=== PATIENT | female | born 1995 | race Caucasian/White ===

== ENCOUNTER 2019-05-23 10:21 | Emergency (ER) | payer OTHER, SELFPAY ==
[2019-05-23] VITALS (9 sets, daily range): BP systolic 103–130; BP diastolic 59–88; PULSE 62–120; RESP 14–24; TEMP 36.4; O2SAT 95–100
--- NOTE | ~2019-05-23 | XR_ITS ---
EXAMINATION: XR chest 2V 05/23/2019 10:38 INDICATION: Chest pain PROCEDURE: 2 view chest COMPARISON: Comparison to multiple prior studies sequentially, with oldest reviewed study dated 11/24. FINDINGS: The lungs are clear. The cardiomediastinal silhouette is within normal limits. There are no pleural effusions. There is no pneumothorax suspected. IMPRESSION: 1: NO ACUTE CARDIOPULMONARY DISEASE. Reviewed, dictated and finalized at location A.
--- NOTE | 2019-05-23 10:31 | ED.CHESTPAIN ---
HPI - Chest Pain General Chief Complaint: Chest Pain Stated Complaint: chest pain for 5 days Time Seen by Provider: 05/23/19 10:29 Source: patient and RN notes reviewed Mode of arrival: ambulatory Limitations: no limitations History of Present Illness HPI narrative: A 24 y/o female presents to the ED with worsening lt CP for the past 5 days. She states that she called her PCP, Dr. Amanda, today and was told to come to the ED to be evaluated. She reports associated decreased intake and that her pain is aggravated with inspiration. She notes that she has been taking Ibuprofen, Tylenol, and has been using heat and ice, but denies anything alleviating her pain. She also notes that she was on the Depo shot but that her last one was roughly 4.5 months ago. She denies any cough, fevers, chills, sweats, rhinorrhea, nasal congestion, SOB, N/V/D, ABD pain, leg edema, or leg pain. MD complaint: chest pain Onset (ago): day(s) (5) Timing of current episode: increasing Pain location: left chest Relieving factors: nothing Exacerbating factors: inspiration Associated symptoms: other (decreased intake) Treatment prior to arrival: other (Ibuprofen, Tylenol, heat, and ice) Risk Factors Coronary artery disease risk factors: smoking history Related Data Home Medications Medication Instructions Recorded Confirmed metoprolol sky-hydrochlorothiaz 1 tablet PO DAILY 05/23/19 Allergies Allergy/AdvReac Type Severity Reaction Status Date / Time Corticosteroids Allergy Unknown Verified 09/05/16 09:34 (Glucocorticoids) Sulfa (Sulfonamide Allergy Unknown Verified 02/02/15 13:44 Antibiotics) ADHESIVE BANDAGE Allergy Unknown Uncoded 05/25/18 17:16 Review of Systems Review of Systems: All systems reviewed & are unremarkable except as noted in HPI and below Constitutional: Constitutional: Denies chills, Denies fever(s), Reports poor appetite and Denies other (sweats) ENT: Denies nasal congestion and Denies nasal discharge Cardiovascular: Cardiovascular: Reports chest pain (lt) and Denies leg edema Respiratory: Respiratory: Denies cough and Denies dyspnea Gastrointestinal: Gastrointestinal: Denies abdominal pain, Denies diarrhea, Denies nausea and Denies vomiting Musculoskeletal: Musculoskeletal: Denies other (leg pain) [facility] Past Medical History Medical History (Updated 05/23/19 @ 14:11 by Paris Matamoros MD) POTS (postural orthostatic tachycardia syndrome) Surgical History Surgical History (Updated 05/23/19 @ 10:48 by Ashish Jiang) History of tonsillectomy and adenoidectomy History of wisdom tooth extraction Hx of shoulder surgery Family History Family History Mother Depression Sibling Depression Social History Social History (Updated 05/23/19 @ 10:46 by Ashish Jiang) Smoking status: Current every day smoker Alcohol intake: current Substance use: current Substance use type: marijuana Comments PCP: Dr. Amanda. Exam Const: General: cooperative, no acute distress and alert Nutritional Appearance: well nourished Orientation/consciousness: patient oriented x3 Limitations: no limitations HENMT: Mouth: Yes lip normal and Yes moist mucous membranes Chest: Chest palpation & inspection: tenderness costochondral junction (Lt) Resp: Effort & Inspection: normal respiratory effort Auscultation: clear to auscultation bilaterally Cardio: Rate: tachycardic Rhythm: regular rhythm GI: GI Palp: Yes Soft to palpation and No Tenderness to palpation present (GI) Auscultation: normal bowel sounds Skin: General skin exam: normal color Neuro: General: patient oriented x3 Cognition (Neuro): normal cognition Speech: normal speech Extrem: General: normal to inspection, full ROM and no clubbing, cyanosis or edema Psych: Mental Status: mental status grossly normal Affect: normal affect Attitude: cooperative Course Course Emergency Course: Patient with pleuriti
--- NOTE | 2019-05-23 10:32 | ECG_ITS ---
Measurements Intervals [place] Rate: 94 P: 63 DE: 130 QRS: 87 QRSD: 97 T: 43 QT: 345 QTc: 433 Interpretive Statements SINUS RHYTHM WITH SINUS ARRHYTHMIA POSSIBLE LEFT ATRIAL ENLARGEMENT INCOMPLETE RIGHT BUNDLE BRANCH BLOCK BORDERLINE ECG Electronically Signed On 05-23-2019 10:39:42 CDT by Montrell Lee D.O.
--- NOTE | 2019-05-23 10:36 | PC.NURSE ---
PT TO XRAY AT THIS TIME.
[2019-05-23 10:44] LABS: Basophils Absolute Auto 0.1 K/mm3 (0.0-0.1); Basophils Percent Auto 0.6 % (0.2-1.2); Eosinophils Absolute Auto 0.5 K/mm3 (0-0.3); Eosinophils Percent Auto 4.9 % (0-4.4); Hematocrit 47.3 % (37.0-47.0); Hemoglobin 15.9 g/dL (12.0-15.0); Immature Granulocyte Absolute 0.04 K/mm3 (0.00-0.031); Immature Granulocyte Percent A 0.4 % (0-0.5); Lymphocytes Percent Auto 15.7 % (18.3-44.2); Mean Corpuscular HGB Conc 33.6 g/dl (32-36); Mean Corpuscular Hemoglobin 30.5 pg (26-34); Mean Corpuscular Volume 90.6 fl (80-100); Mean Platelet Volume 9.3 fl (7.4-10.4); Monocytes Absolute Auto 0.9 K/mm3 (0.1-0.6); Monocytes Percent Auto 7.9 % (2.6-8.5); Neutrophils Absolute Auto 7.6 K/mm3 (1.3-6.7); Neutrophils Percent Auto 70.5 % (45.5-73.1); Platelet Count Result 327 k/mm3 (150-375); Red Blood Count 5.22 M/mm3 (4.2-5.4); Red Cell Distribution Width 12.1 % (11.5-14.5); White Blood Count 10.8 K/mm3 (4.5-10.0)
[2019-05-23] MEDS: ASPIRIN 81 MG CHEWABLE TABLET 324 MG PO (10:50)
[2019-05-23] MEDS: KETOROLAC 30 MG/ML VIAL (*BKC) IV PUSH (10:53)
[2019-05-23 10:56] LABS: Blood Urea Nitrogen 8 mg/dL (7-17); Calcium 9.7 mg/dL (8.4-10.2); Carbon Dioxide 26 mmol/L (22-30); Chloride 103 mmol/L (98-107); Estimated CRCL calculation 89 ml/min; Estimated Glomerular Filt Rate > 60; Glucose 100 mg/dL (65-105); Potassium 3.6 mmol/L (3.4-5.0); Sodium 139 mmol/L (137-145)
[2019-05-23 10:57] LABS: Partial Thromboplastin Time 26.3 SECONDS (22.3-36.8); Prothrombin Time 12.6 Seconds (11.1-14.7)
[2019-05-23 11:07] LABS: Troponin I < 0.012 ng/mL (0.000-0.034)
[2019-05-23 11:10] LABS: D Dimer 0.27 ug/mL (<0.48)
[2019-05-23 13:51] LABS: Troponin I < 0.012 ng/mL (0.000-0.034)
== END 2019-05-23 14:59 | disposition home or self-care (01) ==
PROVIDERS: Emergency Provider Emergency Medicine; PCP Family Medicine
DX: R07.81 Pleurodynia (principal); I49.8 Other specified cardiac arrhythmias; I45.10 Unspecified right bundle-branch block; R94.31 Abnormal electrocardiogram [ECG] [EKG]
CPT/HCPCS: 36415; 71046; 80048; 84484; 85025; 85380; 85610; 85730; 93005; 96374; 99284; A9270; J1885

== ENCOUNTER → 2019-11-29 15:17 | Outpatient (CLI) | payer OTHER, SELFPAY ==
--- NOTE | ~2019-11-29 | XR_ITS ---
XR chest 2V DATE: 11/29/2019 15:50 INDICATION: Tobacco use TECHNIQUE: 2 views COMPARISON: 05/23/2019 PA and lateral chest FINDINGS: Normal heart size. No hilar or mediastinal enlargement. No pulmonary infiltrate or consolid ation, pleural effusion or pulmonary vascular congestion or pneumothorax. IMPRESSION: No active cardiopulmonary disease Reviewed, dictated and finalized at location B.
--- NOTE | ~2019-11-29 | US_ITS ---
EXAMINATION: US thyroid DATE: 11/29/2019 15:43 INDICATION: Low thyroid stimulating hormone. TECHNIQUE: Multiple ultrasound images of the thyroid were obtained. COMPARISON: None. FINDINGS: The right thyroid lobe measures 5.1 x 1.7 x 1.7 cm. The left thyroid lobe measures 4.4 x 1.3 x 1.4 c m. There is normal echotexture and echogenicity throughout the thyroid gland. No discrete nodules id entified. Normal vascular flow is present. IMPRESSION: 1. Normal thyroid. Reviewed, dictated and finalized at location A. IMPRESSION: 1. Normal thyroid.
== END ==
PROVIDERS: PCP Emergency Medicine; Visit Provider Emergency Medicine
DX: R94.6 Abnormal results of thyroid function studies (principal); Z72.0 Tobacco use
CPT/HCPCS: 71046; 76536

== ENCOUNTER → 2020-02-07 09:26 | Outpatient (CLI) | payer OTHER, SELFPAY ==
--- NOTE | ~2020-02-07 | US_ITS ---
US axilla RT 02/07/2020 09:44 Indication: Chronic palpable lump right axilla Procedure: High-resolution ultrasound of the right axilla Comparison: No prior studies for comparison. Findings: Normal heterogeneous echotexture without focal solid or cystic mass. There are normal axill wayne lymph nodes which retain fatty hilum in the axilla. Impression: 1: Normal right axillary lymph nodes. No suspicious abnormalities identified. BI-RADS CATEGORY 2 - BENIGN FINDINGS Reviewed, dictated and finalized at location A. I/99 Impression: 1: Normal right axillary lymph nodes. No suspicious abnormalities identified. BI-RADS CATEGORY 2 - BENIGN FINDINGS
== END ==
PROVIDERS: PCP Emergency Medicine; Visit Provider Surgery
DX: R59.1 Generalized enlarged lymph nodes (principal)
CPT/HCPCS: 76882

== ENCOUNTER 2020-07-03 15:04 | Outpatient (CLI) | payer OTHER, SELFPAY ==
--- NOTE | ~2020-07-03 | XR_ITS ---
EXAMINATION: XR abdomen/kub 1V DATE: 07/03/2020 15:29 INDICATION: Hematuria. Right-sided low back pain. TECHNIQUE: A supine view of the abdomen on 2 radiographs was obtained. COMPARISON: Abdomen radiograph 05/25/2018, CT abdomen and pelvis 06/24/2017 FINDINGS: There are no dilated loops of bowel. There is no urolithiasis. Calcifications in right pelv is are likely vascular. IMPRESSION: 1. No urolithiasis. Reviewed, dictated and finalized at location A. IMPRESSION: 1. No urolithiasis.
[2020-07-03 15:31] LABS: Add Urine Microscopic? YES; Appearance Urine Clear (Clear); Bacteria Urine Trace /hpf; Bilirubin Urine Negative (Negative); Blood Urine 2+ (Negative); Color Urine Yellow (Yellow); Glucose Urine UA Negative (Negative); Ketones Urine Negative (Negative); Leukocyte Esterase Ur Trace LEU/UL (NEGATIVE); Mucus Urine Rare /lpf; Nitrate Urine Negative (Negative); Protein Urine Negative (Negative); Specific Grav Ur 1.011 (1.001-1.035); Squamous Epithelial Cell Urine Occasional /hpf (Few); Urobilinogen Urine Negative mg/dL (<2.0)
== END 2020-07-03 15:05 | disposition home or self-care (01) ==
PROVIDERS: PCP Family Medicine; Visit Provider Family Medicine
DX: R10.9 Unspecified abdominal pain (principal)
CPT/HCPCS: 74018; 81001

== ENCOUNTER 2020-07-16 07:38 | Outpatient (CLI) | payer OTHER, SELFPAY ==
--- NOTE | ~2020-07-16 | US_ITS ---
US abdomen limited INDICATION: Right upper quadrant pain. Flank pain. PROCEDURE: Realtime right upper abdominal ultrasound. COMPARISON: Ultrasound dated 04/16/2011 FINDINGS: The pancreas is normal without focal mass or pancreatic ductal dilation. Liver echotexture is normal without focal mass or intrahepatic biliary dilatation. There is normal directional flow i n the portal vein. The gallbladder is normal without stones, gallbladder wall thickening or pericholecystic fluid. Comm on bile duct measures 2.3 mm. No sonographic Piña's sign. IMPRESSION: 1: Normal limited abdominal ultrasound. Reviewed, dictated and finalized at location A.
== END 2020-07-16 07:39 | disposition home or self-care (01) ==
PROVIDERS: PCP Family Medicine; Visit Provider Family Medicine
DX: R10.11 Right upper quadrant pain (principal)
CPT/HCPCS: 76705

== ENCOUNTER 2020-08-08 07:37 | Outpatient (CLI) | payer OTHER, SELFPAY ==
--- NOTE | ~2020-08-08 | NM_ITS ---
EXAMINATION: NM hepatobiliary wo pharm EXAM DATE: 08/08/2020 10:47 INDICATION: R10.11 - Right upper quadrant pain . TECHNIQUE: 5 mCi Tc-99m mebrofenin (Choletec) was administered intravenously. Scintigraphic images o f the abdomen were obtained for one hour. To obtained gallbladder ejection fraction, patient drank 8 ounces of Ensure and imaging of the gallbladder obtained for one hour following ingestion. Gallblad titus ejection fraction was calculated by the technologist. There is no prior study for comparison. FINDINGS: There is normal clearance of radiotracer from the blood pool. There is homogeneous tracer u ptake by the liver. Activity progresses to the gallbladder. The gallbladder ejection fraction (GBEF) is 89% (most patients with gallbladder dysfunction have GBEF < 35%, but there is slight overlap with the normal range of 33-90% using this protocol).] IMPRESSION: Gallbladder ejection fraction 89%, within normal range. Reviewed, dictated and finalized at location A.
== END 2020-08-08 07:38 | disposition home or self-care (01) ==
PROVIDERS: PCP Family Medicine; Visit Provider Family Medicine
DX: R10.11 Right upper quadrant pain (principal)
CPT/HCPCS: 78226; A9537

== ENCOUNTER → 2020-08-15 10:23 | Outpatient (CLI) | payer OTHER, SELFPAY ==
--- NOTE | ~2020-08-15 | CT_ITS ---
EXAMINATION: CT abdomen pelvis wo con DATE: 08/15/2020 10:44 INDICATION: Abdominal pain, right flank pain, back pain TECHNIQUE: Computed tomography (CT) of the abdomen and pelvis was performed without intravenous contr ast. Automated exposure control and iterative reconstruction technique were employed. Exam dose: 292 .51 mGy-cm total exam DLP. COMPARISON: 07/16/2020 Limited abdominal ultrasound, reported normal 06/24/2017 CT abdomen pelvis FINDINGS: The lung bases are clear. Normal heart size. No pericardial or pleural effusion. The liver, gallbladder, spleen, pancreas, bile ducts, pancreatic duct and adrenal glands are unremark able. Approximately 3.5 mm nonobstructing right renal calculus. The kidneys are otherwise unremarkable. No hydroureteronephrosis. The urinary bladder, uterus and adnexal areas are unremarkable. Normal caliber of the abdominal aorta. No intraperitoneal or retroperitoneal or pelvic mass lesion or adenopathy or ascites. No evidence of appendicitis. No bowel obstruction, bowel wall thickening, pneumatosis or intraperiton eal free air. Included skeletal structures are unremarkable. IMPRESSION: 3.5 mm nonobstructive right renal calculus Reviewed, dictated and finalized at Location A. Reviewed, dictated and finalized at location A.
== END ==
PROVIDERS: PCP Family Medicine; Visit Provider Physician Assistant
DX: M54.9 Dorsalgia, unspecified (principal); N20.0 Calculus of kidney; R10.9 Unspecified abdominal pain
CPT/HCPCS: 74176

== ENCOUNTER → 2020-11-13 02:34 | Outpatient (CLI) | payer OTHER, SELFPAY ==
[2020-11-13 20:46] LABS: SARS-CoV-2 RNA PCR Negative
== END ==
PROVIDERS: Nurse Practitioner Family; PCP Family Medicine; Visit Provider Physician Assistant
DX: Z20.822 Contact with and (suspected) exposure to COVID-19 (principal); R05 Cough
CPT/HCPCS: C9803; U0003; U0005

== ENCOUNTER 2021-02-01 14:46 | Emergency (ER) | payer OTHER, SELFPAY ==
--- NOTE | ~2021-02-01 | US_ITS ---
EXAMINATION: US pelvic complete w TV DATE: 02/01/2021 21:07 INDICATION: Pelvic pain. Abnormal uterine bleeding. TECHNIQUE: Multiple transabdominal and transvaginal sonographic images of the pelvis were obtained. COMPARISON: CT abdomen and pelvis 08/15/2020 FINDINGS: TRANSABDOMINAL ULTRASOUND: The uterus measures 7.0 x 3.2 x 3.9 cm. There is no free fluid in the pelvis. TRANSVAGINAL ULTRASOUND: The endometrial complex measures 4 mm in thickness. There is an intrauterine device in expected posit ion. The right ovary measures 3.0 x 2.3 x 1.7 cm. The left ovary measures 2.9 x 1.4 x 1.8 cm. There i s normal vascular flow in the ovaries. IMPRESSION: 1. Intrauterine device in expected position. Reviewed, dictated and finalized at location A. ROL DIRECTOR
[2021-02-01 14:55] VITALS: BP 116/61; PULSE 64; RESP 16; TEMP 36.8; O2SAT 100
[2021-02-01 17:59] VITALS: BP 116/73; PULSE 79; RESP 16; TEMP 37.3; O2SAT 100
--- NOTE | 2021-02-01 19:36 | ED.FEMALEGU ---
HPI - Female Genitourinary General Chief complaint: Vaginal Bleeding <Ave Fernando PA-C - Last Filed: 02/01/21 21:38> Stated complaint: vag bleeding after iud placement <HANY Taylor Last Filed: 02/01/21 21:38> Time Seen by Provider: 02/01/21 18:57 <Ave Fernando PA-C - Last Filed: 02/01/21 21:38> Source: patient <HANY Taylor Last Filed: 02/01/21 21:38> Mode of arrival: ambulatory <HANY Taylor Last Filed: 02/01/21 21:38> Limitations: no limitations <HANY Taylor Last Filed: 02/01/21 21:38> History of Present Illness HPI Narrative: This is a 25-year-old female that presents to the emergency department for abnormal uterine bleeding. Reports she recently had an IUD placed about 3 weeks ago. Reports over the last couple of days she has been having very heavy vaginal bleeding. Reports she is having to change her pad every hour. Reports crampy lower abdominal pain. Denies fever, vomiting, or dysuria. <HANY Taylor Last Filed: 02/01/21 21:38> Related Data Allergies/Adverse reactions: Allergies Allergy/AdvReac Type Severity Reaction Status Date / Time Corticosteroids Allergy Unknown Unknown Verified 12/12/20 08:06 (Glucocorticoids) cheese AdvReac Mild Swelling Verified 12/12/20 08:06 ADHESIVE BANDAGE Allergy Unknown Unknown Uncoded 12/12/20 08:06 <Ave Fernando PA-C - Last Filed: 02/01/21 21:38> Review of Systems Review of Systems: CONSTITUTIONAL: Denies fever GASTROINTESTINAL: Reports abdominal pain. Denies nausea, vomiting, or diarrhea. GENITOURINARY: Denies dysuria <Ave Fernando PA-C - Last Filed: 02/01/21 21:38> All systems reviewed & are unremarkable except as noted in HPI and below <HANY Taylor Last Filed: 02/01/21 21:38> PMFSH Past Medical History Medical History: Medical History POTS (postural orthostatic tachycardia syndrome) <Ave Fernando PA-C - Last Filed: 02/01/21 21:38> Surgical History Surgical History: Surgical History History of tonsillectomy and adenoidectomy History of wisdom tooth extraction Hx of shoulder surgery <Ave Fernando PA-C - Last Filed: 02/01/21 21:38> Family History Family History: Family History Mother Depression Diabetes mellitus Sibling Depression Father Heart disease Hypertension Asthma Other Diabetes mellitus Cerebrovascular accident Cancer Nervous disorder Grandparent Diabetes mellitus Hypertension Grandparent Cancer Hypertension Heart disease <Ave Fernando PA-C - Last Filed: 02/01/21 21:38> Social History Social History: Social History Years smoked: 8 Smoking status: Current some day smoker Tobacco type: e-cigarettes/vaping Second hand tobacco smoke exposure: No Alcohol intake: former Alcohol use details: stomach issues Substance use: former Substance use type: marijuana Last use: July 2020 Gender identity (if verbalized by the patient): Female Sexual Orientation (if Verbalized by the Patient): Straight or Heterosexual <Ave Fernando PA-C - Last Filed: 02/01/21 21:38> Exam Narrative: GENERAL: Well-appearing, well-nourished, and in no acute distress. HEAD: Normocephalic, atraumatic. EYES: EOMI. CHEST: Clear to auscultation. No respiratory distress. No wheezes rales or rhonchi HEART: Regular rate and rhythm. No murmur heard. Normal peripheral pulses. ABDOMEN: Soft, nondistended, normal active bowel sounds. Mild tenderness to palpation throughout the lower abdomen, without guarding. No CVA tenderness EXTREMITIES: Normal range of motion. No edema. SKIN: Warm, dry, no rash. NEURO: No focal deficits. Alert and oriented x3. PSYCH: N
[2021-02-01 20:00] LABS: Basophils Absolute Auto 0.1 K/mm3 (0.0-0.1); Eosinophils Absolute Auto 0.4 K/mm3 (0-0.3); Eosinophils Percent Auto 3.9 % (0-4.4); Hematocrit 39.7 % (37.0-47.0); Hemoglobin 13.6 g/dL (12.0-15.0); Immature Granulocyte Absolute 0.03 K/mm3 (0.00-0.031); Immature Granulocyte Percent A 0.3 % (0-0.5); Lymphocytes Absolute Auto 2.99 K/mm3 (0.9-3.2); Lymphocytes Percent Auto 32.5 % (18.3-44.2); Mean Corpuscular HGB Conc 34.3 g/dl (32-36); Mean Corpuscular Hemoglobin 31.2 pg (26-34); Mean Corpuscular Volume 91.1 fl (80-100); Mean Platelet Volume 8.9 fl (7.4-10.4); Monocytes Absolute Auto 0.8 K/mm3 (0.1-0.6); Monocytes Percent Auto 8.6 % (2.6-8.5); Neutrophils Absolute Auto 4.9 K/mm3 (1.3-6.7); Neutrophils Percent Auto 53.7 % (45.5-73.1); Platelet Count Result 343 k/mm3 (150-375); Red Blood Count 4.36 M/mm3 (4.2-5.4); Red Cell Distribution Width 11.9 % (11.5-14.5); White Blood Count 9.2 K/mm3 (4.5-10.0)
[2021-02-01 20:09] LABS: Alanine Aminotransferase 11 U/L (4-35); Albumin Level 4.2 g/dL (3.5-5.1); Alkaline Phosphatase 63 U/L (38-126); Anion Gap 6 mmol/L (8-16); Aspartate Amino Transferase 20 U/L (14-36); Bilirubin,Total 0.9 mg/dL (0.2-1.3); Blood Urea Nitrogen 11 mg/dL (7-17); Calcium 9.1 mg/dL (8.4-10.2); Carbon Dioxide 28 mmol/L (22-30); Chloride 101 mmol/L (98-107); Estimated CRCL calculation 99 ml/min; Estimated Glomerular Filt Rate > 60; Glucose 90 mg/dL (65-110); Potassium 3.6 mmol/L (3.4-5.0); Sodium 135 mmol/L (137-145)
[2021-02-01 20:10] LABS: Prothrombin Time 13.3 Seconds (11.1-14.7)
[2021-02-01 20:11] VITALS: BP 120/72; PULSE 76; RESP 16; O2SAT 99
[2021-02-01 20:11] LABS: Partial Thromboplastin Time 28.1 SECONDS (22.3-36.8)
[2021-02-01 20:17] VITALS: BP 111/69; BP 114/80; PULSE 65; PULSE 68
[2021-02-01 20:18] VITALS: BP 127/82; PULSE 82
[2021-02-01 20:22] LABS: Add Urine Microscopic? YES; Appearance Urine Clear (Clear); Bilirubin Urine Negative (Negative); Blood Urine 2+ (Negative); Color Urine Yellow (Yellow); Glucose Urine UA Negative (Negative); Ketones Urine Negative (Negative); Leukocyte Esterase Ur Negative LEU/UL (Negative); Mucus Urine Rare /lpf; Nitrate Urine Negative (Negative); Protein Urine Negative (Negative); Specific Grav Ur 1.015 (1.001-1.035); Squamous Epithelial Cell Urine Occasional /hpf (Few); Urobilinogen Urine Negative mg/dL (<2.0); WBC Urine 0-3 /hpf
[2021-02-01] MEDS: SODIUM CHLORIDE 0.9% IV 1,000 ML 999 ML IV CONT (20:38)
--- NOTE | 2021-02-01 20:42 | PC.NURSE ---
Pt to US via stretcher at this time.
--- NOTE | 2021-02-01 21:19 | PC.NURSE ---
EDP at bedside for pelvic exam
[2021-02-01 22:05] VITALS: BP 122/78; PULSE 70; RESP 16; TEMP 37.2; O2SAT 100
== END 2021-02-01 22:06 | disposition home or self-care (01) ==
PROVIDERS: Physician Assistant; Emergency Provider General Practice; PCP Family Medicine
DX: N93.9 Abnormal uterine and vaginal bleeding, unspecified (principal); I49.8 Other specified cardiac arrhythmias; F17.290 Nicotine dependence, other tobacco product, uncomplicated; Z30.431 Encounter for routine checking of intrauterine contraceptive device
CPT/HCPCS: 36415; 76830; 76856; 80053; 81001; 81025; 85025; 85610; 85730; 96365; 99284; J0131; J7030

== ENCOUNTER 2021-05-16 14:45 | Outpatient (CLI) | payer OTHER, SELFPAY ==
--- NOTE | ~2021-05-16 | XR_ITS ---
EXAMINATION: XR chest 2V 05/16/2021 14:59 INDICATION: Cough and shortness of breath PROCEDURE: 2 view chest COMPARISON: Comparison to multiple prior studies sequentially, with oldest reviewed study dated 04/01. FINDINGS: The lungs are clear. The cardiomediastinal silhouette is within normal limits. There are no pleural effusions. There is no pneumothorax suspected. IMPRESSION: 1: NO ACUTE CARDIOPULMONARY DISEASE. Reviewed, dictated and finalized at location B.
== END 2021-05-16 14:46 | disposition home or self-care (01) ==
LOC: ANHIMG 14:48
PROVIDERS: PCP Family Medicine; Visit Provider Nurse Practitioner Family
DX: R05.9 Cough, unspecified (principal); R50.9 Fever, unspecified
CPT/HCPCS: 71046

== ENCOUNTER 2021-05-23 15:55 | Emergency (ER) | payer OTHER, SELFPAY ==
--- NOTE | ~2021-05-23 | XR_ITS ---
EXAMINATION: XR abdomen/kub 1V EXAM DATE: 05/23/2021 16:25 INDICATION: RT Sided Flank Pain Onset This p.m., Hematuria . TECHNIQUE: Frontal projection(s) of the abdomen for interpretation. Comparison is made to prior exami nation from 05/25/2018. FINDINGS: One of the right-sided pelvic calcifications was not present in 2019. This measures about 3 mm, could be development of phlebolith or UVJ stone given history provided. This finding has been i ndicated, marked on the examination for review, clinical correlation. There is IUD projecting over th e central aspect of the pelvis. There is a nonobstructive bowel gas pattern. There are no osseous abn ormalities identified. IMPRESSION: Several right pelvic calcifications, one of which is new, possible 3 mm UVJ stone versus phlebolith. Reviewed, dictated and finalized at location G.
--- NOTE | 2021-05-23 16:01 | ED.FEMALEGU ---
HPI - Female Genitourinary General Chief complaint: Abdominal Pain Stated complaint: Kidney pain Time Seen by Provider: 05/23/21 16:26 Source: patient and RN notes reviewed Mode of arrival: ambulatory Limitations: no limitations History of Present Illness HPI Narrative: 26-year-old female presents concern for right flank pain. She reports she has been having this pain on and off for almost a year. Reports she has seen a supervisor packing room for which she has a follow-up appointment on Thursday. She reports her supervisor packing room told her she had a stone that was not calcium based so could not be broken up. She was not given any medical intervention. She reports stabbing pain, mild nausea without vomiting. She denies abdominal pain, constipation. She reports small amount of diarrhea. She denies fever, bodies, chills, sweats. She denies dysuria, frequency, urgency. Reports hematuria in the past, has not had visible hematuria today. MD elicited complaint: flank pain Related Data Allergies Allergy/AdvReac Type Severity Reaction Status Date / Time Corticosteroids Allergy Unknown Unknown Verified 05/23/21 16:03 (Glucocorticoids) cheese AdvReac Mild Swelling Verified 05/23/21 16:03 ADHESIVE BANDAGE Allergy Unknown Unknown Uncoded 05/23/21 16:03 Review of Systems Review of Systems: CONSTITUTIONAL: Denies malaise, chills, sweats, or fever. CARDIOVASCULAR: Denies chest pain, palpitations, or edema. RESPIRATORY: Denies cough or dyspnea. GASTROINTESTINAL: Denies abdominal pain, vomiting, diarrhea. Reports nausea GENITOURINARY: Denies dysuria, frequency, urgency, suprapubic pressure, hematuria. Reports right flank pain SKIN: Denies rash or itching. MUSCULOSKELETAL: Denies back pain or myalgia. All systems reviewed & are unremarkable except as noted in HPI and below PMFSH Past Medical History Medical History POTS (postural orthostatic tachycardia syndrome) Surgical History Surgical History History of tonsillectomy and adenoidectomy History of wisdom tooth extraction Hx of shoulder surgery Family History Family History Mother Depression Diabetes mellitus Sibling Depression Father Heart disease Hypertension Asthma Other Diabetes mellitus Cerebrovascular accident Cancer Nervous disorder Grandparent Diabetes mellitus Hypertension Grandparent Cancer Hypertension Heart disease Social History Social History Years smoked: 8 Smoking status: Current every day smoker Tobacco type: e-cigarettes/vaping Second hand tobacco smoke exposure: No Alcohol intake: former Alcohol use details: stomach issues Substance use: former Substance use type: marijuana Last use: July 2020 Gender identity (if verbalized by the patient): Female Sexual Orientation (if Verbalized by the Patient): Straight or Heterosexual Comments At time of signature, agree with nursing past medical, surgical, social and family history. There is no relevant family history pertinent to the presenting complaint Exam Narrative: GENERAL: Nontoxic-appearing and in no acute distress. HEAD: Normocephalic. EYES: PERRLA, conjunctivae clear. NECK: Supple. No lymphadenopathy CHEST: Clear to auscultation. No respiratory distress. HEART: Regular rate and rhythm. ABDOMEN: Soft, nontender upon palpation, nondistended, normal active bowel sounds, no palpable or pulsatile masses, no guarding. No CVA tenderness SKIN: Warm, dry, no rash. NEURO: Alert and oriented x3. PSYCH: Tearful Course Course Emergency Course: Patient is aware of diagnosis, understands and agrees to treatment plan. Anticipatory guidance given. Patient agrees to follow-up as directed and is aware of reasons to seek care at the emergency departm
[2021-05-23 16:04] VITALS: BP 121/73; PULSE 85; RESP 12; TEMP 37.1; O2SAT 100
[2021-05-23] MEDS: KETOROLAC (*BKC) 60 MG/2 ML VIAL IM (16:40)
[2021-05-23] MEDS: ONDANSETRON HCL ODT 4 MG TABLET SUBLINGUAL (16:44)
== END 2021-05-23 17:18 | disposition home or self-care (01) ==
PROVIDERS: Emergency Provider Nurse Practitioner; PCP Family Medicine
DX: R10.9 Unspecified abdominal pain (principal); F17.290 Nicotine dependence, other tobacco product, uncomplicated
CPT/HCPCS: 74018; 81003; 96372; 99213; A9270; G0463; J1885